=== PATIENT | male | born 1965 | race Caucasian/White ===

== ENCOUNTER 2018-11-30 11:25 | Inpatient (IN) | payer OTHER ==
[~2018-11-30] VITALS: Ht 182.9 cm; Wt 154.1 kg
[~2018-11-30 11:25] MED LIST: ATEN50 PO; Bactrim Ds Tab1 EACH PO; IBUP800 PO
[2018-11-30 12:12] LABS: BASOPHILS ABSOLUTE AUTO 0.07 K/mm3 (0.00-0.23); BASOPHILS PERCENT AUTO 0 % (0-2); EOSINOPHILS ABSOLUTE AUTO 0.07 K/mm3 (0.00-0.68); EOSINOPHILS PERCENT AUTO 0 % (0-6); Hemoglobin 14.8 g/dL (13.5-17.5); IMMATURE GRAN ABSOLUTE AUTO 0.08 K/mm3 (0.00-0.10); IMMATURE GRAN PERCENT AUTO 0 % (0-1); LYMPHOCYTES PERCENT AUTO 15 % (21-46); MONOCYTES ABSOLUTE AUTO 1.06 K/mm3 (0.16-1.47); MONOCYTES PERCENT AUTO 6 % (4-13); Mean Corpuscular HGB 33.4 pg (26.0-34.0); Mean Corpuscular Volume 90 fL (80-100); NEUTROPHILS ABSOLUTE AUTO 14.95 K/mm3 (1.96-9.15); NEUTROPHILS PERCENT AUTO 79 % (41-73); Platelet Count 346 K/mm3 (150-400); RDW Coefficient Variation 11.6 % (11.7-14.2); RDW Standard Deviation 37.9 fL (35.1-46.3); Red Blood Cell Count 4.43 M/mm3 (4.30-5.90); White Blood Cell Count 19.03 K/mm3 (4.00-11.30)
[2018-11-30 12:39] LABS: Alanine Aminotransfer (ALT/SGP 81 U/L (12-78); Albumin/Globulin Ratio 0.8 (0.8-1.8); Alk Phos 65 U/L (50-136); Anion Gap 8 mmol/L (6-16); Aspartate Aminotrans (AST/SGOT 65 U/L (12-37); Bilirubin, Total 0.9 mg/dL (0.1-1.0); Blood Urea Nitrogen 7 mg/dL (8-24); Bun/Creatinine Ratio 9.3 (12.0-20.0); CO2, Blood 24 mmol/L (21-32); Calcium, Blood 8.8 mg/dL (8.5-10.1); Chloride, Blood 84 mmol/L (98-108); Creatinine, Blood 0.75 mg/dL (0.60-1.20); Globulin, Blood 4.8 g/dL (2.2-4.0); Glomerular Filtration Rate >60 (60-); Glucose, Blood 164 mg/dL (70-99); Potassium, Blood 4.1 mmol/L (3.5-5.5); Sodium, Blood 116 mmol/L (136-145); Total Protein, Blood 8.8 g/dL (6.4-8.2)
[2018-11-30] MEDS ORDERED: Metformin HCl1000 MG PO (13:07)
[2018-11-30] MEDS ORDERED: ATEN100 PO (13:08)
[2018-11-30] MEDS ORDERED: ATORVASTATIN CA10 MG PO (13:08)
[2018-11-30] MEDS ORDERED: ZESTORETIC 20-121 EA PO (13:08)
[2018-11-30 13:42] LABS: Source, Urine Clean Catch
[2018-11-30 13:48] LABS: Bilirubin, Urine Neg (Neg); Blood, Urine Neg (Neg); Glucose Qualitative, Urine Neg (Neg); Ketones, Urine Neg (Neg); Leukocyte Esterase, Urine Neg (Neg); Nitrite, Urine Neg (Neg); Protein, Urine Neg (Neg); Specific Gravity, Urine 1.015 (1.003-1.022); Urobilinogen, Urine NORM (Normal)
[2018-11-30 13:59] LABS: Appearance, Urine Clear (Clear); Color, Urine Yellow (P-Yellow)
[2018-11-30 17:08] LABS: U Amphetamine Screen Not Detected; U Barbituate Screen Not Detected; U Benzodiazapine Screen Not Detected; U Buprenorphine Screen Not Detected; U Cannabinoids Screen Not Detected; U Cocaine Screen Not Detected; U Methadone Screen Not Detected; U Methamphetamine Screen Not Detected; U Opiates Screen Not Detected; U Oxycodone Screen Not Detected; U Phencyclidine Screen Not Detected; U Propoxyphene Screen Not Detected
--- NOTE | 2018-11-30 17:17 | NUR ---
PT ARRIVED TO PCU APPROX 1600. MOANING ASKING FOR PAIN MEDS. PER ER NURSE PT RECEIVED PAIN MEDICATION JUST PRIOR TO LEAVING ED. PT IS PROVIDED WITH TRAMADOL 50MG PO AFTER ARRIVAL TO PCU. ANSWERS QUESTIONS APPROPRIATELY. COMPLAINS OF HEADACHE PAIN AND NAUSEA. WILL CONTINUE TO MONITOR THIS PATIENT CLOSELY.
[2018-11-30 17:23] LABS: Anion Gap 8 mmol/L (6-16); Blood Urea Nitrogen 7 mg/dL (8-24); Bun/Creatinine Ratio 8.8 (12.0-20.0); CO2, Blood 26 mmol/L (21-32); Calcium, Blood 7.8 mg/dL (8.5-10.1); Chloride, Blood 87 mmol/L (98-108); Glomerular Filtration Rate >60 (60-); Glucose, Blood 139 mg/dL (70-99); Potassium, Blood 3.7 mmol/L (3.5-5.5); Sodium, Blood 121 mmol/L (136-145)
[2018-11-30 23:30] LABS: Anion Gap 7 mmol/L (6-16); Blood Urea Nitrogen 7 mg/dL (8-24); Bun/Creatinine Ratio 9.3 (12.0-20.0); CO2, Blood 25 mmol/L (21-32); Calcium, Blood 7.9 mg/dL (8.5-10.1); Chloride, Blood 91 mmol/L (98-108); Creatinine, Blood 0.75 mg/dL (0.60-1.20); Glomerular Filtration Rate >60 (60-); Glucose, Blood 137 mg/dL (70-99); Potassium, Blood 3.8 mmol/L (3.5-5.5); Sodium, Blood 123 mmol/L (136-145)
[2018-12-01 05:34] LABS: Anion Gap 6 mmol/L (6-16); Blood Urea Nitrogen 7 mg/dL (8-24); Bun/Creatinine Ratio 9.7 (12.0-20.0); CO2, Blood 25 mmol/L (21-32); Calcium, Blood 7.9 mg/dL (8.5-10.1); Chloride, Blood 94 mmol/L (98-108); Creatinine, Blood 0.72 mg/dL (0.60-1.20); Glomerular Filtration Rate >60 (60-); Glucose, Blood 130 mg/dL (70-99); Potassium, Blood 4.1 mmol/L (3.5-5.5); Sodium, Blood 125 mmol/L (136-145)
--- NOTE | 2018-12-01 05:55 | NUR ---
SHIFT SUMMARY PATIENT PLEASENT AND COOPERATIVE THROUGHOUT THE NIGHT. PATIENT MEDICATED FOR HEADACHE PAIN PER EMAR. PATIENT APPEARED TO NAP ON AND OFF THROUGHOUT THE NIGHT. PATIENT'S IV FLUIDS RUNNING PER ORDERS AND ALMOST COMPLETE. SODIUM LEVEL IS 125 THIS AM. CHARGE NURSE AWARE AND STATES IT IS FINE FOR IV FLUIDS TO FINISH. PATIENT'S BLOOD PRESSURE ELEVATED THIS AM. DR LECHUGA AWARE AND ORDERS RECIEVED. PATIENT DENIES ANY NAUSEA AND VOMITING THROUGHOUT THE NIGHT. WILL CONTINUE TO MONITOR PATIENT AND REPORT TO ONCOMING RN.
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
[2018-12-01 18:45] LABS: Anion Gap 5 mmol/L (6-16); Blood Urea Nitrogen 7 mg/dL (8-24); Bun/Creatinine Ratio 10.3 (12.0-20.0); CO2, Blood 27 mmol/L (21-32); Calcium, Blood 8.5 mg/dL (8.5-10.1); Chloride, Blood 91 mmol/L (98-108); Creatinine, Blood 0.68 mg/dL (0.60-1.20); Glomerular Filtration Rate >60 (60-); Glucose, Blood 152 mg/dL (70-99); Potassium, Blood 4.3 mmol/L (3.5-5.5); Sodium, Blood 123 mmol/L (136-145)
[2018-12-02 05:11] LABS: Anion Gap 8 mmol/L (6-16); Blood Urea Nitrogen 6 mg/dL (8-24); Bun/Creatinine Ratio 9.1 (12.0-20.0); CO2, Blood 26 mmol/L (21-32); Calcium, Blood 8.7 mg/dL (8.5-10.1); Chloride, Blood 92 mmol/L (98-108); Creatinine, Blood 0.66 mg/dL (0.60-1.20); Glomerular Filtration Rate >60 (60-); Glucose, Blood 126 mg/dL (70-99); Potassium, Blood 3.8 mmol/L (3.5-5.5); Sodium, Blood 126 mmol/L (136-145)
--- NOTE | 2018-12-02 05:51 | NUR ---
SHIFT SUMMARY PT C/O ALMONTE. BP 188/105. MEDICATED C HYDRALAZINE AND TYLENOL. RECHECKED BP STILL 193/87. NOTIFIED DR MORFIN SHE ORDERED NORCO AND IV METOPROLOL C TELE. AFTER IV METOPROLOL BP 149/79. HE SAID THE NORCO HELPED RELIEVE HIS ALMONTE. HE WAS ABLE TO SLEEP AFTER THAT. TELE RUNS SINUS MARIAMA AT TIMES. CALL LIGHT IN REACH.
--- NOTE | 2018-12-02 19:48 | NUR ---
SHIFT SUMMARY PATIENT C/O THROBBING HEADACHE, NORCO GIVEN Q6. ROOM MADE DARK FOR PT COMFORT. PATIENT C/O FATIGUE AND VOIDING ABOUT EVERY HOUR. RECHECK BP AFTER MORNING BP MEDS WAS 159/73. TELE RUNNING SB, HR 54.
--- NOTE | 2018-12-03 04:31 | NUR ---
MANAGER PROGRAMMING SUMMARY NO ACUTE CHANGES THIS SHIFT. PT AAOX4 AND INDEPENDENT IN ROOM. BP BETTER CONTROLLED TONIGHT WITH SBP 141. MEDICATED FOR PAIN Q6H WITH NORCO, PT REPORTS BEST PAIN RELIEF WITH NORCO. PT PAIN IS MAINLY FROM HEADACHE WHICH HE SAYS IS WORSE WITH BRIGHT LIGHT. VSS, WILL CONTINUE TO MONITOR.
[2018-12-03 08:13] LABS: BASOPHILS ABSOLUTE AUTO 0.13 K/mm3 (0.00-0.23); BASOPHILS PERCENT AUTO 1 % (0-2); EOSINOPHILS ABSOLUTE AUTO 0.44 K/mm3 (0.00-0.68); EOSINOPHILS PERCENT AUTO 4 % (0-6); Hematocrit 44.4 % (37.0-53.0); Hemoglobin 15.8 g/dL (13.5-17.5); IMMATURE GRAN ABSOLUTE AUTO 0.06 K/mm3 (0.00-0.10); IMMATURE GRAN PERCENT AUTO 1 % (0-1); LYMPHOCYTES ABSOLUTE AUTO 2.65 K/mm3 (0.84-5.20); LYMPHOCYTES PERCENT AUTO 23 % (21-46); MONOCYTES ABSOLUTE AUTO 1.15 K/mm3 (0.16-1.47); MONOCYTES PERCENT AUTO 10 % (4-13); Mean Corpuscular HGB 32.9 pg (26.0-34.0); Mean Corpuscular HGB Conc 35.6 g/dL (31.5-36.5); NEUTROPHILS ABSOLUTE AUTO 7.28 K/mm3 (1.96-9.15); NEUTROPHILS PERCENT AUTO 62 % (41-73); Platelet Count 327 K/mm3 (150-400); RDW Coefficient Variation 11.9 % (11.7-14.2); RDW Standard Deviation 40.6 fL (35.1-46.3); White Blood Cell Count 11.71 K/mm3 (4.00-11.30)
[2018-12-03 08:21] LABS: Mean Corpuscular Volume 93 fL (80-100)
[2018-12-03 08:38] LABS: Alanine Aminotransfer (ALT/SGP 64 U/L (12-78); Albumin, Blood 3.6 g/dL (3.4-5.0); Albumin/Globulin Ratio 0.7 (0.8-1.8); Alk Phos 59 U/L (50-136); Anion Gap 5 mmol/L (6-16); Aspartate Aminotrans (AST/SGOT 43 U/L (12-37); Bilirubin, Total 0.7 mg/dL (0.1-1.0); Blood Urea Nitrogen 10 mg/dL (8-24); CO2, Blood 27 mmol/L (21-32); Chloride, Blood 96 mmol/L (98-108); Creatinine, Blood 0.84 mg/dL (0.60-1.20); Globulin, Blood 4.9 g/dL (2.2-4.0); Glomerular Filtration Rate >60 (60-); Glucose, Blood 132 mg/dL (70-99); Potassium, Blood 4.3 mmol/L (3.5-5.5); Sodium, Blood 128 mmol/L (136-145); Total Protein, Blood 8.5 g/dL (6.4-8.2)
[2018-12-03] MEDS ORDERED: LISI20 PO (14:48)
[2018-12-03] MEDS ORDERED: CLON.1 PO (14:48)
--- NOTE | 2018-12-03 16:06 | NUR ---
PATIENT DISCHARGED PATIENT DC WITH A RIDE FROM FATHER. IV REMOVED. PATIENT STATES HEADACHE PAIN HAS GRADUALLY IMPROVED, TAKING NORCO Q6. BP IS BETTER CONTROLLED. AT 0728 BEFORE MORNING MEDS BP WAS 139/92. SODIUM LEVEL IS IMPROVED - 28. DC PACKET GIVEN TO PATIENT, MEDS EXPLAINED TO PT. NORCO PRESCRIPTION GIVEN TO PATIENT. PATIENT VERBALIZED UNDERSTANDING AND SIGNED DC FORM.
== END 2018-12-03 15:41 | disposition home or self-care (01) | DRG 641 ==
LOC: ER 11:25 → PCU 14:47 → MEDS 12-01 11:01 → PCU 12-01 11:02 → MEDS 12-01 21:12
PROVIDERS: Emergency Medicine; Internal Medicine; ADMIT Hospitalist
DX: E87.1 Hypo-osmolality and hyponatremia (principal); Z68.41 Body mass index [BMI] 40.0-44.9, adult; E11.65 Type 2 diabetes mellitus with hyperglycemia; I10 Essential (primary) hypertension; E66.01 Morbid (severe) obesity due to excess calories; B18.2 Chronic viral hepatitis C; F17.200 Nicotine dependence, unspecified, uncomplicated; Z79.84 Long term (current) use of oral hypoglycemic drugs; Z79.899 Other long term (current) drug therapy
CPT/HCPCS: 36415; 70450; 71045; 80048; 80053; 81003; 82947; 83690; 83880; 83930; 83935; 84550; 85025; 85651; 96361; 96374; 96375; 99285-25; A9270; A9270-GY; J0360; J1650; J1885; J1940; J2405; J3010; J7030

== ENCOUNTER → 2019-01-20 | Outpatient (CLI) | payer OTHER ==
[~2019-01-20] MED LIST changes: +ATEN100 PO; +ATORVASTATIN CA10 MG PO; +CLON.1 PO; +LISI20 PO; +Metformin HCl1000 MG PO; +ZESTORETIC 20-121 EA PO
[2019-01-22 14:00] LABS: Stool Occult Bld Immuno 1 Negative (NEGATIVE)
== END | disposition home or self-care (01) ==
LOC: LAB 09:32 → LAB SHORT 09:32 → EDSTATUS 01-14 14:40 → LAB FUT 01-14 14:40
PROVIDERS: Nurse Practitioner Family
DX: Z12.11 Encounter for screening for malignant neoplasm of colon (principal)
CPT/HCPCS: G0328

== ENCOUNTER → 2021-01-10 | Outpatient (CLI) | payer OTHER ==
[~2021-01-10] MED LIST changes: +AMLODIPINE BESYL5 MG PO; +CEPH500 PO
[2021-01-14 13:57] LABS: Stool Occult Bld Immuno 1 Negative (NEGATIVE)
== END | disposition home or self-care (01) ==
LOC: LAB 08:33 → LAB SHORT 08:33
PROVIDERS: Physician Assistant
DX: Z12.11 Encounter for screening for malignant neoplasm of colon (principal)
CPT/HCPCS: G0328

== ENCOUNTER → 2022-03-31 | Outpatient (CLI) | payer OTHER ==
[2022-04-04 10:15] LABS: Stool Occult Bld Immuno 1 Negative (NEGATIVE)
== END | disposition home or self-care (01) ==
LOC: LAB SHORT 13:00
PROVIDERS: Physician Assistant
DX: Z12.11 Encounter for screening for malignant neoplasm of colon (principal)
CPT/HCPCS: G0328

== ENCOUNTER 2022-11-20 07:09 | Day surgery (SDC) | payer OTHER ==
[~2022-11-20] VITALS: Ht 177.8 cm; Wt 125.8 kg
[2022-11-20] MEDS ORDERED: GLIP5ER PO (08:03)
[2022-11-20] MEDS ORDERED: ACET500 (08:04)
[2022-11-20] MEDS ORDERED: NAPR220 PO (08:04)
[2022-11-20 09:32] VITALS: BP 112/77
== END 2022-11-20 09:47 | disposition home or self-care (01) ==
LOC: ORSCSDS 07:09
PROVIDERS: Specialist
PROC: 0DBK8ZX Excision of Ascending Colon, Via Natural or Artificial Opening Endoscopic, Diagnostic (ICD-10-PCS; principal; 2022-11-20 08:45)
PROC: 0DBN8ZX Excision of Sigmoid Colon, Via Natural or Artificial Opening Endoscopic, Diagnostic (ICD-10-PCS; principal; 2022-11-20 08:45)
PROC: 0DJ08ZZ Inspection of Upper Intestinal Tract, Via Natural or Artificial Opening Endoscopic (ICD-10-PCS; principal; 2022-11-20 08:45)
DX: K74.60 Unspecified cirrhosis of liver (principal); Z12.11 Encounter for screening for malignant neoplasm of colon; D12.2 Benign neoplasm of ascending colon; D12.5 Benign neoplasm of sigmoid colon; K64.8 Other hemorrhoids; K57.30 Diverticulosis of large intestine without perforation or abscess without bleeding; I10 Essential (primary) hypertension; G47.33 Obstructive sleep apnea (adult) (pediatric); E11.9 Type 2 diabetes mellitus without complications; E78.5 Hyperlipidemia, unspecified; B19.20 Unspecified viral hepatitis C without hepatic coma; E66.01 Morbid (severe) obesity due to excess calories; Z68.39 Body mass index [BMI] 39.0-39.9, adult; Z79.84 Long term (current) use of oral hypoglycemic drugs; Z79.899 Other long term (current) drug therapy
CPT/HCPCS: 82947; 88305; J2704; J7120

== ENCOUNTER 2022-12-31 00:47 | Emergency (ER) | payer OTHER ==
[~2022-12-31] VITALS: Ht 177.8 cm; Wt 127.0 kg
[~2022-12-31 00:47] MED LIST changes: +ACET500; +GLIP5ER PO; +NAPR220 PO
[2022-12-31 01:37] VITALS: BP 144/80
== END 2022-12-31 02:03 | disposition home or self-care (01) ==
LOC: ER 00:47
DX: T16.2XXA Foreign body in left ear, initial encounter (principal); I10 Essential (primary) hypertension; E11.9 Type 2 diabetes mellitus without complications; B19.20 Unspecified viral hepatitis C without hepatic coma; Z79.84 Long term (current) use of oral hypoglycemic drugs; Z79.899 Other long term (current) drug therapy; F17.210 Nicotine dependence, cigarettes, uncomplicated; X58.XXXA Exposure to other specified factors, initial encounter
CPT/HCPCS: 96372; 99283-25; J1885

== ENCOUNTER 2024-07-26 17:07 | Observation (INO) | payer OTHER ==
[~2024-07-26] VITALS: Ht 177.8 cm; Wt 113.4 kg
[~2024-07-26 17:07] MED LIST changes: +SULTRIDS PO
[2024-07-26] MEDS ORDERED: FentaNYL Citrate 50 MCG/ML 2 ML Injection IV ONE ×2 (17:30→19:50)
[2024-07-26 17:48] LABS: BASOPHILS ABSOLUTE AUTO 0.18 K/mm3 (0.00-0.23); BASOPHILS PERCENT AUTO 1 % (0-2); EOSINOPHILS ABSOLUTE AUTO 1.63 K/mm3 (0.00-0.68); EOSINOPHILS PERCENT AUTO 11 % (0-6); Hemoglobin 18.1 g/dL (13.5-17.5); IMMATURE GRAN ABSOLUTE AUTO 0.05 K/mm3 (0.00-0.10); IMMATURE GRAN PERCENT AUTO 0 % (0-1); LYMPHOCYTES ABSOLUTE AUTO 3.72 K/mm3 (0.84-5.20); LYMPHOCYTES PERCENT AUTO 26 % (21-46); MONOCYTES PERCENT AUTO 8 % (4-13); Mean Corpuscular HGB Conc 34.8 g/dL (31.5-36.5); Mean Corpuscular Volume 95 fL (80-100); Mean Platelet Volume 10.5 fL (9.1-12.4); NEUTROPHILS ABSOLUTE AUTO 7.59 K/mm3 (1.96-9.15); NEUTROPHILS PERCENT AUTO 53 % (41-73); Platelet Count 430 K/mm3 (150-400); RDW Coefficient Variation 11.9 % (11.7-14.2); RDW Standard Deviation 41.9 fL (35.1-46.3); Red Blood Cell Count 5.49 M/mm3 (4.30-5.90); White Blood Cell Count 14.27 K/mm3 (4.00-11.30)
[2024-07-26 18:08] LABS: Albumin, Blood 4.5 g/dL (3.4-5.0); Albumin/Globulin Ratio 1.1 (0.8-1.8); Bilirubin, Total 0.4 mg/dL (0.1-1.0); Bun/Creatinine Ratio 13.1 (12.0-20.0); Calcium, Blood 9.9 mg/dL (8.5-10.1); Creatinine, Blood 1.07 mg/dL (0.60-1.20); Potassium, Blood 4.9 mmol/L (3.5-5.5); Total Protein, Blood 8.5 g/dL (6.4-8.2)
[2024-07-26] MEDS ORDERED: HYDROmorphone HCl/Pf 1MG SYR IV ONE (20:20)
[2024-07-26] MEDS ORDERED: Aspirin 325 MG Tab PO ONE (23:30)
[2024-07-27] MEDS ORDERED: Ketorolac Tromethamine 15mg Vial IV PRN (00:45)
[2024-07-27] MEDS ORDERED: NS 1,000 ML IV SCH (00:45)
[2024-07-27] MEDS ORDERED: FentaNYL Citrate 50 MCG/ML 2 ML Injection IV PRN ×2 (00:45→06:00)
[2024-07-27] MEDS ORDERED: Ondansetron HCl 2 MG / ML 2ML Vial IV PRN (00:45)
[2024-07-27 01:55] VITALS: BP 121/84
[2024-07-27] MEDS ORDERED: Magnesium Hydroxide Conc 10 ML UDC PO PRN (01:55)
--- NOTE | 2024-07-27 02:58 | NUR ---
PT ARRIVES TO U 13 AT 0150 AFTER REPORT TAKEN FROM TEAMSITE DEVELOPER. PT AMBULATES FROM [facility] TO HOSPITAL BED INDEPENDENTLY. HE IS ON ROOM AIR, SATS ABOVE 90%. BP AND HR STABLE. PT ENDORSES 8/10 CHEST PAIN THAT INCREASES TO 10/10 WITH MOVEMENT. MEDICATED PER EMAR. PT HAS REDNESS AND DRYNESS ON RIGHT FOOT/LEG, STATES HE HAS CELLULITIS. SKIN OTHERWISE INTACT. PT USES CANE AT BASELINE DUE TO RA, OSTEOARTHRITIS, AND NEUROPATHY WITH DROP FOOT. PT STATES HE HAS UPCOMING LAMINECTOMY THIS COMING SUNDAY AND CANNOT TAKE NSAIDS OR BLOOD THINNERS. PT NPO AT THIS TIME PER MD ORDERS. PT HAS RECENTLY STARTED TAKING OPIOIDS FOR PAIN AND STATES THAT HE BELIEVES THAT THE NEW MEDICATION CONTRIBUTED TO HIS CONTSTIPATION X1 WEEK. PT CURRENTLY RESTING IN BED WITH CALL LIGHT IN REACH.
[2024-07-27 03:56] VITALS: BP 133/90
[2024-07-27 05:36] LABS: BASOPHILS PERCENT AUTO 1 % (0-2); EOSINOPHILS ABSOLUTE AUTO 1.41 K/mm3 (0.00-0.68); EOSINOPHILS PERCENT AUTO 9 % (0-6); Hematocrit 49.1 % (37.0-53.0); IMMATURE GRAN ABSOLUTE AUTO 0.07 K/mm3 (0.00-0.10); IMMATURE GRAN PERCENT AUTO 1 % (0-1); LYMPHOCYTES ABSOLUTE AUTO 3.13 K/mm3 (0.84-5.20); LYMPHOCYTES PERCENT AUTO 21 % (21-46); MONOCYTES ABSOLUTE AUTO 1.21 K/mm3 (0.16-1.47); MONOCYTES PERCENT AUTO 8 % (4-13); Mean Corpuscular HGB 33.2 pg (26.0-34.0); Mean Corpuscular HGB Conc 34.6 g/dL (31.5-36.5); Mean Corpuscular Volume 96 fL (80-100); Mean Platelet Volume 10.5 fL (9.1-12.4); NEUTROPHILS ABSOLUTE AUTO 8.94 K/mm3 (1.96-9.15); NEUTROPHILS PERCENT AUTO 60 % (41-73); Platelet Count 364 K/mm3 (150-400); RDW Coefficient Variation 12.1 % (11.7-14.2); RDW Standard Deviation 42.6 fL (35.1-46.3); Red Blood Cell Count 5.12 M/mm3 (4.30-5.90); White Blood Cell Count 14.96 K/mm3 (4.00-11.30)
[2024-07-27 06:01] LABS: Albumin, Blood 4.1 g/dL (3.4-5.0); Bilirubin, Total 0.5 mg/dL (0.1-1.0); Bun/Creatinine Ratio 16.1 (12.0-20.0); Calcium, Blood 9.3 mg/dL (8.5-10.1); Creatinine, Blood 1.12 mg/dL (0.60-1.20); Globulin, Blood 4.1 g/dL (2.2-4.0); Potassium, Blood 4.7 mmol/L (3.5-5.5); Total Protein, Blood 8.2 g/dL (6.4-8.2)
[2024-07-27] MEDS ORDERED: Acetaminophen 325 MG TABLET PO PRN (06:05)
--- NOTE | 2024-07-27 06:07 | NUR ---
NO ACUTE EVENTS SINCE TRANSFER. PT STILL HAVING CHEST PAIN, TREATING PER JUN. PT STATES PAIN FEELS MUSCULOSKELETAL IN NATURE. RESTING COMFORTABLY IN BED WITH CALL LIGHT IN REACH.
[2024-07-27] MEDS ORDERED: Magnesium Hydroxide Conc 10 ML UDC PO ONE (07:45)
[2024-07-27 07:53] VITALS: BP 126/85
[2024-07-27] MEDS ORDERED: Atenolol 50 MG Tab PO SCH (09:00)
[2024-07-27] MEDS ORDERED: Sennosides 8.6 MG Tab PO SCH (09:00)
[2024-07-27] MEDS ORDERED: AmLODIPine Besylate 5 MG Tab PO SCH (09:00)
[2024-07-27] MEDS ORDERED: CloNIDine 0.1 MG Tab PO SCH (09:00)
[2024-07-27] MEDS ORDERED: Enoxaparin 40 MG/0.4 ML SYR SC SCH (09:00)
[2024-07-27] MEDS ORDERED: Lisinopril 20 MG Tab PO SCH (09:00)
[2024-07-27] MEDS ORDERED: Acetaminophen650 M1 PO (11:08)
[2024-07-27] MEDS ORDERED: DOCU100 PO (11:08)
[2024-07-27] MEDS ORDERED: MIRALAX17 GM PO (11:09)
== END 2024-07-27 11:36 | disposition home or self-care (01) ==
LOC: ER 17:07 → PCU 17:08 → ERHOLD 17:08 → PCU 07-27 01:46
PROVIDERS: Student in an Organized Health Care Education/Training Program; ADMIT Internal Medicine
DX: R07.2 Precordial pain (principal); I10 Essential (primary) hypertension; E11.9 Type 2 diabetes mellitus without complications; F17.210 Nicotine dependence, cigarettes, uncomplicated; E78.5 Hyperlipidemia, unspecified; K59.00 Constipation, unspecified; Z79.84 Long term (current) use of oral hypoglycemic drugs; Z79.899 Other long term (current) drug therapy; Z86.19 Personal history of other infectious and parasitic diseases
CPT/HCPCS: 36415; 71275; 74174; 80053; 83690; 83880; 84484; 85025; 93005; 93010; 96374; 96375; 96376; 99285-25; A9270; G0378; J1171; J1885; J3010; J7030; Q9967

== ENCOUNTER 2024-09-29 03:28 | Day surgery (SDC) | payer OTHER ==
[~2024-09-29 03:28] MED LIST changes: +Acetaminophen650 M1 PO; +DOCU100 PO; +MIRALAX17 GM PO
== END 2024-09-29 23:44 | disposition home or self-care (01) ==
LOC: WOUND 03:28
DX: E11.622 Type 2 diabetes mellitus with other skin ulcer (principal); S21.209A Unspecified open wound of unspecified back wall of thorax without penetration into thoracic cavity, initial encounter; T81.31XA Disruption of external operation (surgical) wound, not elsewhere classified, initial encounter; I10 Essential (primary) hypertension; Z72.0 Tobacco use; Y83.8 Other surgical procedures as the cause of abnormal reaction of the patient, or of later complication, without mention of misadventure at the time of the procedure
CPT/HCPCS: G0463

== ENCOUNTER 2024-11-15 21:06 | Emergency (ER) | payer OTHER ==
[~2024-11-15] VITALS: Ht 172.7 cm; Wt 113.4 kg
[2024-11-15 22:30] VITALS: BP 115/78
[2024-11-15] MEDS ORDERED: Trimethoprim/Sulfamethoxazole DS Tab PO ONE (22:35)
[2024-11-15] MEDS ORDERED: SULTRIDS PO (22:39)
[2024-11-15] MEDS ORDERED: CEPH500 PO (22:39)
== END 2024-11-15 22:47 | disposition home or self-care (01) ==
LOC: ER 21:06
DX: L03.116 Cellulitis of left lower limb (principal); I10 Essential (primary) hypertension; F17.210 Nicotine dependence, cigarettes, uncomplicated; Z79.84 Long term (current) use of oral hypoglycemic drugs; Z79.899 Other long term (current) drug therapy
CPT/HCPCS: 73620; 99283-25; A9270

== ENCOUNTER 2024-12-12 12:03 | Day surgery (SDC) | payer OTHER ==
[~2024-12-12] VITALS: Ht 177.8 cm; Wt 107.7 kg
[2024-12-12] MEDS ORDERED: CYCL10 (12:20)
[2024-12-12] MEDS ORDERED: Robaxin750 MG (12:20)
[2024-12-12 13:48] VITALS: BP 148/89
== END 2024-12-12 13:40 | disposition home or self-care (01) ==
LOC: ORSCSDS 12:03
PROVIDERS: Internal Medicine Gastroenterology
PROC: 0DB68ZX Excision of Stomach, Via Natural or Artificial Opening Endoscopic, Diagnostic (ICD-10-PCS; principal; 2024-12-12 13:30)
DX: K74.60 Unspecified cirrhosis of liver (principal); Z13.810 Encounter for screening for upper gastrointestinal disorder; K29.70 Gastritis, unspecified, without bleeding; E11.9 Type 2 diabetes mellitus without complications; E66.01 Morbid (severe) obesity due to excess calories; B18.2 Chronic viral hepatitis C; I10 Essential (primary) hypertension; G47.33 Obstructive sleep apnea (adult) (pediatric); E78.5 Hyperlipidemia, unspecified; E87.1 Hypo-osmolality and hyponatremia; Z68.34 Body mass index [BMI] 34.0-34.9, adult; Z87.891 Personal history of nicotine dependence; Z79.84 Long term (current) use of oral hypoglycemic drugs; Z79.899 Other long term (current) drug therapy
CPT/HCPCS: 82947; 88305; 88342; J2704; J7120